=== PATIENT | male | born 1985 | race African-American/Black ===

== ENCOUNTER 2018-06-26 11:05 | Emergency (ER) | payer SELFPAY ==
[~2018-06-26] VITALS: Ht 182.9 cm; Wt 104.3 kg
[2018-06-26 11:09] VITALS: BP 132/72
--- NOTE | 2018-06-26 11:17 | NUR ---
PT AMBULATED TO BED 8
--- NOTE | 2018-06-26 11:21 | NUR ---
PT BIB SELF FOR LT HAND PAIN X3 DAYS. PT REPORTS CONSTANT SHARP HAND PAIN AT 9/10 THAT OCCASIONALLY RADIATES UP LT ARM. 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 NO VISIBLE EDEMA, DISCOLORATION, OR DEFORMITY. VSS. ER MD TO SEE PT. MEDHX:DENIES RX:DENIES
--- NOTE | 2018-06-26 11:49 | NUR ---
X-RAY FAT BEDSIDE AT THIS TIME
--- NOTE | 2018-06-26 11:53 | NUR ---
TANYA CRUZ AT BEDSIDE AT THIS TIME.
--- NOTE | 2018-06-26 12:37 | NUR ---
US TECH AT BEDSIDE AT THIS TIME.
--- NOTE | 2018-06-26 14:30 | NUR ---
GOOD PMS AND FULL R.O.M NOTED TO BILAT HANDS POST HAND SPLINT
[2018-06-26 14:40] VITALS: BP 111/79
== END 2018-06-26 14:41 | disposition hospice, home (50) ==
LOC: MED 11:05
DX: M25.532 Pain in left wrist (principal); F17.210 Nicotine dependence, cigarettes, uncomplicated
CPT/HCPCS: 73130; 76881; 99284; Q0092